=== PATIENT | female | born 1990 | race Caucasian/White ===

== ENCOUNTER 2017-04-10 09:26 | Emergency (ER) | payer MEDICAID, OTHER ==
[~2017-04-10] VITALS: Ht 162.6 cm; Wt 70.0 kg
[~2017-04-10 09:26] MED LIST: IBUP200C5 PO
[2017-04-10] MEDS ORDERED: IPRATROPIUM BROMIDE (0.02%) 0.5MG/2.5ML NEB HHN STA (09:51)
[2017-04-10] MEDS ORDERED: PREDNISONE 20MG TABLET PO STA (09:51)
[2017-04-10] MEDS ORDERED: ALBUTEROL (0.083%) 2.5MG/3ML NEB HHN STA (09:51)
[2017-04-10 11:52] VITALS: BP 130/90
== END 2017-04-10 12:00 | disposition home or self-care (01) ==
LOC: ER 10:58
DX: J45.901 Unspecified asthma with (acute) exacerbation (principal)
CPT/HCPCS: 71010; 81025; 94640; 99283; J7512; J7611; Z7610